=== PATIENT | male | born 2000 | race Caucasian/White ===

== ENCOUNTER 2025-02-26 10:41 | Emergency (ER) | payer OTHER, BC ==
[2025-02-26] MEDS: Bacitracin Oint 1 GM U/D Packet TOP ONE (11:07)
[2025-03-06] MEDS: Diphtheria,Pertussis(Acell),Tetanus Vaccine 0.5 ML Syringe IM ONE (16:22)
== END 2025-02-26 11:38 | disposition home or self-care (01) ==
LOC: DL.ED 10:41
DX: S61.012A Laceration without foreign body of left thumb without damage to nail, initial encounter (principal); W26.0XXA Contact with knife, initial encounter
CPT/HCPCS: 12001; 99282; A9270; J2003